=== PATIENT | female | born 1985 | race Caucasian/White ===

== ENCOUNTER → 2016-04-23 | Outpatient (CLI) | payer BC, MEDICAID ==
[2016-04-23 14:06] LABS: BASO % 0.5 % (0.0-1.0); EOS # 0.2 K/mm3 (0.0-0.50); LARGE UNSTAINED CELL # 0.2 K/mm3 (0.0-0.4); LARGE UNSTAINED CELL % 2.1 % (0.0-4.0); LYMPH # 2.4 K/mm3 (1.5-6.5); LYMPH % 33.8 % (24.0-44.0); MEAN CORPUSCULAR HEMOGLOBIN 28.9 pg (27.0-33.0); MEAN CORPUSCULAR HGB CONC 32.6 g/dl (32.0-36.5); MEAN CORPUSCULAR VOLUME 88.5 fl (80.0-96.0); MONO # 0.3 K/mm3 (0.0-0.8); MONO % 4.6 % (0.0-5.0); NEUTROPHILS # 3.9 K/mm3 (1.8-7.7); PLATELET COUNT, AUTOMATED 191 k/mm3 (150-450); RED CELL DISTRIBUTION WIDTH 12.4 % (11.5-14.5)
[2016-04-23 14:37] LABS: ALBUMIN 3.6 GM/DL (3.2-5.2); ALBUMIN/GLOBULIN RATIO 1.13 (1.00-1.93); ALKALINE PHOSPHATASE 64 U/L (45-117); ALT/SGPT 26 U/L (12-78); ANION GAP 8 MEQ/L (8-16); AST/SGOT 13 U/L (15-37); BILIRUBIN,TOTAL 0.4 MG/DL (0.2-1.0); BLOOD UREA NITROGEN 12 MG/DL (7-18); CALCIUM LEVEL 8.7 MG/DL (8.5-10.1); CARBON DIOXIDE LEVEL 28 MEQ/L (21-32); CHLORIDE LEVEL 106 MEQ/L (98-107); CREATININE FOR GFR 0.82 MG/DL (0.55-1.02); FERRITIN 114 NG/ML (8-252); GLOMERULAR FILTRATION RATE > 60.0 (>60); GLUCOSE, FASTING 94 MG/DL (70-105); PERCENT SATURATION 21.2 % (13.2-37.4); PHOSPHORUS LEVEL 4.1 MG/DL (2.5-4.9); POTASSIUM SERUM 4.1 MEQ/L (3.5-5.1); SODIUM LEVEL 142 MEQ/L (136-145); TOTAL IRON BINDING CAPACITY 293 UG/DL (250-450); TOTAL PROTEIN 6.8 GM/DL (6.4-8.2)
[2016-04-23 14:42] LABS: VITAMIN B12 LEVEL 360 PG/ML (247-911)
[2016-04-24 13:37] LABS: PRETREATED FOLATE FOR RBCFOL 7.9 NG/ML
== END ==
LOC: M LAB 13:16
PROVIDERS: ATTEND Surgery
DX: K91.2 Postsurgical malabsorption, not elsewhere classified (principal); Z98.84 Bariatric surgery status

== ENCOUNTER → 2016-10-23 | Outpatient (CLI) | payer BC, MEDICAID ==
[2016-10-23 12:07] LABS: BASO % 0.6 % (0.0-1.0); EOS # 0.2 K/mm3 (0.0-0.50); EOS % 3.9 % (0.0-3.0); LARGE UNSTAINED CELL # 0.2 K/mm3 (0.0-0.4); LARGE UNSTAINED CELL % 3.4 % (0.0-4.0); LYMPH # 2.4 K/mm3 (1.5-4.5); MEAN CORPUSCULAR HEMOGLOBIN 29.9 pg (27.0-33.0); MEAN CORPUSCULAR VOLUME 90.8 fl (80.0-96.0); MONO # 0.3 K/mm3 (0.0-0.8); MONO % 5.6 % (0.0-5.0); NEUTROPHILS # 2.9 K/mm3 (1.8-7.7); NEUTROPHILS % 47.6 % (36.0-66.0); PLATELET COUNT, AUTOMATED 239 k/mm3 (150-450); RED CELL DISTRIBUTION WIDTH 12.5 % (11.5-14.5)
[2016-10-23 13:16] LABS: ALBUMIN 3.6 GM/DL (3.2-5.2); ALBUMIN/GLOBULIN RATIO 1.13 (1.00-1.93); ALKALINE PHOSPHATASE 64 U/L (45-117); ALT/SGPT 26 U/L (12-78); ANION GAP 7 MEQ/L (8-16); AST/SGOT 10 U/L (15-37); BILIRUBIN,TOTAL 0.3 MG/DL (0.2-1.0); BLOOD UREA NITROGEN 17 MG/DL (7-18); CALCIUM LEVEL 8.6 MG/DL (8.5-10.1); CARBON DIOXIDE LEVEL 30 MEQ/L (21-32); CHLORIDE LEVEL 106 MEQ/L (98-107); CREATININE FOR GFR 0.78 MG/DL (0.55-1.02); FERRITIN 144 NG/ML (8-252); GLOMERULAR FILTRATION RATE > 60.0 (>60); GLUCOSE, FASTING 85 MG/DL (70-105); MAGNESIUM LEVEL 2.1 MG/DL (1.8-2.4); PERCENT SATURATION 32.2 % (13.2-45.0); PHOSPHORUS LEVEL 3.3 MG/DL (2.5-4.9); POTASSIUM SERUM 4.4 MEQ/L (3.5-5.1); SODIUM LEVEL 143 MEQ/L (136-145); TOTAL IRON BINDING CAPACITY 289 UG/DL (250-450); TOTAL PROTEIN 6.8 GM/DL (6.4-8.2)
[2016-10-23 14:07] LABS: VITAMIN B12 LEVEL 356 PG/ML (247-911)
[2016-10-23 15:28] LABS: PRETREATED FOLATE FOR RBCFOL 14.9 NG/ML
== END ==
LOC: M LAB 11:29
PROVIDERS: ATTEND Surgery
DX: K91.2 Postsurgical malabsorption, not elsewhere classified (principal); E53.8 Deficiency of other specified B group vitamins; E55.9 Vitamin D deficiency, unspecified; Z98.84 Bariatric surgery status

== ENCOUNTER → 2016-12-18 | Outpatient (REF) | payer BC, MEDICAID, OTHER | LOC: M LAB REF 08:03 | PROVIDERS: ATTEND Physician Assistant | DX: N39.0 Urinary tract infection, site not specified (principal) ==

== ENCOUNTER → 2017-03-09 | Outpatient (CLI) | payer BC, MEDICAID ==
[2017-03-09 10:44] LABS: ESTIMATED AVERAGE GLUCOSE 105 MG/DL (60-110); HEMOGLOBIN A1c 5.3 %
[2017-03-09 11:00] LABS: ALBUMIN 3.7 GM/DL (3.2-5.2); ALBUMIN/GLOBULIN RATIO 1.16 (1.00-1.93); ALKALINE PHOSPHATASE 64 U/L (45-117); ALT/SGPT 24 U/L (12-78); ANION GAP 5 MEQ/L (8-16); AST/SGOT 12 U/L (7-37); BILIRUBIN,TOTAL 0.4 MG/DL (0.2-1.0); BLOOD UREA NITROGEN 13 MG/DL (7-18); CALCIUM LEVEL 8.4 MG/DL (8.5-10.1); CARBON DIOXIDE LEVEL 32 MEQ/L (21-32); CHLORIDE LEVEL 105 MEQ/L (98-107); CHOLESTEROL LEVEL 191 MG/DL (<200); CHOLESTEROL RISK RATIO 3.293 (<5); CREATININE FOR GFR 0.81 MG/DL (0.55-1.30); FREE T4 0.93 NG/DL (0.76-1.46); GLOMERULAR FILTRATION RATE > 60.0 (>60); GLUCOSE, FASTING 88 MG/DL (70-100); HDL CHOLESTEROL 58 MG/DL (>40); LDL CHOLESTEROL 114.8 MG/DL (<100); NON-HDL-C 133 MG/DL; POTASSIUM SERUM 4.4 MEQ/L (3.5-5.1); SODIUM LEVEL 142 MEQ/L (136-145); TOTAL PROTEIN 6.9 GM/DL (6.4-8.2); TRIGLYCERIDES LEVEL 91 MG/DL (<150)
[2017-03-09 12:08] LABS: CHLAMYDIA DNA AMPLIFICATION NEGATIVE (NEGATIVE); GC DNA AMPLIFICATION NEGATIVE (NEGATIVE)
[2017-03-10 11:41] LABS: HIV 1&2 SCREEN CENTAUR NEGATIVE (NEGATIVE)
== END ==
LOC: M LAB 09:51
DX: M25.511 Pain in right shoulder (principal); Z13.9 Encounter for screening, unspecified; Z68.35 Body mass index [BMI] 35.0-35.9, adult; R20.0 Anesthesia of skin
CPT/HCPCS: 73030

== ENCOUNTER 2017-04-05 08:36 | Outpatient (RCR) | payer BC, MEDICAID | END 2017-04-07 | LOC: M PT 08:36 | DX: Z51.89 Encounter for other specified aftercare (principal); M25.511 Pain in right shoulder | CPT/HCPCS: 97110 ==

== ENCOUNTER 2017-04-08 08:32 | Outpatient (RCR) | payer BC, MEDICAID | END 2017-05-08 | LOC: M PT 04-12 08:43 | DX: Z51.89 Encounter for other specified aftercare (principal); M25.511 Pain in right shoulder ==

== ENCOUNTER 2017-05-13 08:40 | Outpatient (RCR) | payer BC | END 2017-06-07 | LOC: M PT 08:40 | DX: Z51.89 Encounter for other specified aftercare (principal); M25.511 Pain in right shoulder | CPT/HCPCS: 97010 ==

== ENCOUNTER → 2017-06-22 | Outpatient (REF) | payer BC ==
[2017-06-24 14:14] LABS: HPV HYBRID CAPTURE II Negative (Negative)
== END ==
LOC: M SFHCWAGY 09:49
DX: Z12.4 Encounter for screening for malignant neoplasm of cervix (principal)
CPT/HCPCS: G0123

== ENCOUNTER → 2017-08-04 | Outpatient (REF) | payer BC ==
[2017-08-04 18:59] LABS: FREE T4 0.99 NG/DL (0.76-1.46)
== END ==
LOC: M LAB REF 17:43
DX: E02 Subclinical iodine-deficiency hypothyroidism (principal)

== ENCOUNTER → 2017-09-16 | Outpatient (REF) | payer BC ==
[2017-09-16 17:57] LABS: TESTOSTERONE 18 NG/DL (14-76)
[2017-09-16 17:57] LABS: PROLACTIN 68.5 NG/ML
[2017-09-16 17:58] LABS: FOLLICLE STIMULATING HORMONE 5.7 mIU/mL; LUTEINIZING HORMONE 6.8 mIU/mL
[2017-09-17 10:37] LABS: THYROID PEROXIDASE ANTIBODY > 1300.0 U/ML (<60.0)
== END ==
LOC: M LAB REF 17:14
DX: E28.2 Polycystic ovarian syndrome (principal); E06.3 Autoimmune thyroiditis
CPT/HCPCS: 83001

== ENCOUNTER → 2017-10-28 | Outpatient (REF) | payer BC ==
[2017-10-28 19:11] LABS: PROLACTIN 6.2 NG/ML
== END ==
LOC: M LAB REF 18:12
DX: E02 Subclinical iodine-deficiency hypothyroidism (principal); E28.2 Polycystic ovarian syndrome
CPT/HCPCS: 84146

== ENCOUNTER → 2018-02-23 | Outpatient (CLI) | payer BC ==
[2018-02-23 16:41] LABS: BASO # 0.1 10^3/uL (0.0-0.2); BASO % 0.7 % (0.0-1.0); EOS # 0.3 10^3/uL (0.0-0.50); EOS % 3.8 % (0.0-3.0); HEMATOCRIT 40.2 % (36.0-47.0); HEMOGLOBIN 13.2 g/dl (12.0-15.5); LYMPH # 2.8 10^3/uL (1.5-4.5); LYMPH % 40.7 % (24.0-44.0); MEAN CORPUSCULAR HEMOGLOBIN 28.7 pg (27.0-33.0); MEAN CORPUSCULAR HGB CONC 32.8 g/dl (32.0-36.5); MEAN CORPUSCULAR VOLUME 87.4 fl (80.0-96.0); MONO # 0.6 10^3/uL (0.0-0.8); MONO % 8.5 % (0.0-5.0); NEUTROPHILS # 3.2 10^3/uL (1.8-7.7); PLATELET COUNT, AUTOMATED 251 10^3/uL (150-450); WHITE BLOOD COUNT 6.9 10^3/uL (4.0-10.0)
[2018-02-23 17:06] LABS: ALBUMIN 3.9 GM/DL (3.2-5.2); ALT/SGPT 27 U/L (12-78); BILIRUBIN,TOTAL 0.3 MG/DL (0.2-1.0); BLOOD UREA NITROGEN 12 MG/DL (7-18); CALCIUM LEVEL 8.4 MG/DL (8.5-10.1); CARBON DIOXIDE LEVEL 29 MEQ/L (21-32); CHLORIDE LEVEL 105 MEQ/L (98-107); CHOLESTEROL LEVEL 207 MG/DL (<200); CHOLESTEROL RISK RATIO 3.696 (<5); CREATININE FOR GFR 0.75 MG/DL (0.55-1.30); GLOMERULAR FILTRATION RATE > 60.0 (>60); GLUCOSE, FASTING 77 MG/DL (70-100); HDL CHOLESTEROL 56 MG/DL (>40); LDL CHOLESTEROL 128 MG/DL (<100); NON-HDL-C 151 MG/DL; POTASSIUM SERUM 4.3 MEQ/L (3.5-5.1); SODIUM LEVEL 140 MEQ/L (136-145); TRIGLYCERIDES LEVEL 114 MG/DL (<150)
[2018-02-23 17:07] LABS: TOTAL 25(OH) VITAMIN D 51.1 NG/ML (30.0-100.0)
[2018-02-23 17:08] LABS: FOLATE 11.6 NG/ML; VITAMIN B12 LEVEL 737 PG/ML
== END ==
LOC: M LAB 15:31
PROVIDERS: ATTEND Nurse Practitioner Family
DX: E66.09 Other obesity due to excess calories (principal); Z13.9 Encounter for screening, unspecified; E02 Subclinical iodine-deficiency hypothyroidism; Z98.84 Bariatric surgery status

== ENCOUNTER → 2018-06-28 | Outpatient (REF) | payer BC ==
[2018-06-28 19:59] LABS: THYROID STIMULATING HORMONE 2.43 uIU/ML (0.358-3.740); TOTAL 25(OH) VITAMIN D 39.5 NG/ML (30.0-100.0)
== END ==
LOC: M LAB REF 19:00
PROVIDERS: ATTEND Nurse Practitioner Adult Health
DX: Z98.84 Bariatric surgery status (principal)

== ENCOUNTER → 2018-10-17 | Outpatient (REF) | payer BC ==
[2018-10-17 19:07] LABS: ALBUMIN 3.8 GM/DL (3.2-5.2); ALT/SGPT 21 U/L (12-78); BILIRUBIN,TOTAL 0.3 MG/DL (0.2-1.0); BLOOD UREA NITROGEN 11 MG/DL (7-18); CALCIUM LEVEL 9.1 MG/DL (8.5-10.1); CARBON DIOXIDE LEVEL 29 MEQ/L (21-32); CHLORIDE LEVEL 105 MEQ/L (98-107); GLOMERULAR FILTRATION RATE > 60.0 (>60); GLUCOSE, FASTING 66 MG/DL (70-100); IRON (FE) 74 UG/DL (50-170); POTASSIUM SERUM 4.1 MEQ/L (3.5-5.1); SODIUM LEVEL 144 MEQ/L (136-145); TOTAL PROTEIN 6.7 GM/DL (6.4-8.2)
[2018-10-17 19:10] LABS: VITAMIN B12 LEVEL 583 PG/ML (247-911)
== END ==
LOC: M LAB REF 18:18
PROVIDERS: ATTEND Nurse Practitioner Adult Health
DX: E02 Subclinical iodine-deficiency hypothyroidism (principal)

== ENCOUNTER 2019-01-17 17:11 | Emergency (ER) | payer BC ==
[~2019-01-17] VITALS: Ht 160 cm; Wt 97.0 kg
[2019-01-17] MEDS ORDERED: prenatal vitamin (17:18)
[2019-01-17] MEDS ORDERED: LEVO25TA5 (17:18)
[2019-01-17] MEDS ORDERED: BUPR300T34 (17:18)
[2019-01-17 19:29] LABS: BASO # 0.1 10^3/uL (0.0-0.2); BASO % 0.9 % (0.0-1.0); EOS # 0.3 10^3/uL (0.0-0.5); EOS % 3.7 % (0.0-3.0); HEMATOCRIT 41.3 % (36.0-47.0); HEMOGLOBIN 13.3 g/dl (12.0-15.5); LYMPH # 2.1 10^3/uL (1.5-5.0); MEAN CORPUSCULAR HEMOGLOBIN 28.9 pg (27.0-33.0); MEAN CORPUSCULAR HGB CONC 32.2 g/dl (32.0-36.5); MEAN CORPUSCULAR VOLUME 89.6 fl (80.0-96.0); MONO # 0.6 10^3/uL (0.0-0.8); MONO % 9.1 % (0.0-5.0); NEUTROPHILS # 3.7 10^3/uL (1.5-8.5); NEUTROPHILS % 55.2 % (36.0-66.0); PLATELET COUNT, AUTOMATED 240 10^3/uL (150-450); RED BLOOD COUNT 4.61 10^6/uL (4.00-5.40); WHITE BLOOD COUNT 6.7 10^3/uL (4.0-10.0)
[2019-01-17 20:16] LABS: BLOOD UREA NITROGEN 9 MG/DL (7-18); CALCIUM LEVEL 8.4 MG/DL (8.5-10.1); CARBON DIOXIDE LEVEL 28 MEQ/L (21-32); CHLORIDE LEVEL 106 MEQ/L (98-107); CREATININE FOR GFR 0.79 MG/DL (0.55-1.30); GLOMERULAR FILTRATION RATE > 60.0 (>60); GLUCOSE, FASTING 84 MG/DL (70-100); HCG, SERUM QUANTITATIVE 15970 MIU/ML; SODIUM LEVEL 139 MEQ/L (136-145)
--- NOTE | 2019-01-17 22:17 | REPVR ---
PROCEDURE INFORMATION: Exam: US First Trimester, Transabdominal Exam date and time: 01/17/2019 10:00 PM Age: 33 years old Clinical history: Lmp or gestational age (in weeks): 6; Antepartum complications; Bleeding; ; Additional info: Vaginal bleeding and bilateral pelvic pain TECHNIQUE: Imaging protocol: Real-time transabdominal obstetrical ultrasound of the maternal pelvis and a first trimester , less than 14 weeks 0 days, with image documentation. COMPARISON: US PELVIC NON-OB COMPLETE 08/12/2014 10:48 AM FINDINGS: GESTATION: Gestation: Single intrauterine gestational sac with mean diameter of 1.9 cm. Heart rate: 102 beats per minute. Placenta: Large subchorionic hemorrhage posterior to the sac measuring 8.8 x 2.6 x 6.8 cm. BIOMETRY: Estimated gestational age: pole with crown-rump length of 4.6 mm, corresponding to an estimated gestational age of 6 weeks 1 day. MATERNAL: Uterus: The uterus measures 11.3 x 6.9 x 7.8 cm. Cervix: Unremarkable. Right adnexa: The right ovary measures 4.8 x 2.7 cm and contains a 2.7 cm complex corpus luteum. Left adnexa: The left ovary measures 3.1 x 1.5 cm and appears unremarkable. Intraperitoneal: No free fluid is demonstrated. IMPRESSION: 1. Single viable intrauterine gestation with estimated gestational age of 6 weeks 1 day. heart rate measures 102 beats per minute, and followup is recommended within 4-7 days to document continued viability. 2. Large subchorionic hemorrhage. Recommend close followup. 3. 2.7 cm right ovarian corpus luteum. Electronically signed by: Tom Juarez On 01/17/2019 22:17:35 PM
[2019-01-17 22:35] VITALS: BP 115/72
--- NOTE | 2019-01-18 12:26 | ED PDOC ---
Post-Departure Follow-Up dr nixon faxed formal report oe 1st trimester us for fu Fidelina Sherwood MD Jan 18, 2019 12:26
== END 2019-01-17 23:51 | disposition home or self-care (01) ==
LOC: M ED 17:11
DX: O20.8 Other hemorrhage in early pregnancy (principal); Z3A.00 Weeks of gestation of pregnancy not specified; Z91.040 Latex allergy status; Z79.899 Other long term (current) drug therapy; O99.841 Bariatric surgery status complicating pregnancy, first trimester

== ENCOUNTER → 2019-01-25 | Outpatient (REF) | payer BC ==
[~2019-01-25] MED LIST: BUPR300T34; LEVO25TA5; prenatal vitamin
[2019-01-25 17:23] LABS: HEMATOCRIT 39.7 % (36.0-47.0); HEMOGLOBIN 12.9 g/dl (12.0-15.5); MEAN CORPUSCULAR HEMOGLOBIN 28.9 pg (27.0-33.0); MEAN CORPUSCULAR HGB CONC 32.5 g/dl (32.0-36.5); PLATELET COUNT, AUTOMATED 248 10^3/uL (150-450); RED BLOOD COUNT 4.46 10^6/uL (4.00-5.40); WHITE BLOOD COUNT 8.2 10^3/uL (4.0-10.0)
[2019-01-25 18:12] LABS: FREE T3 2.3 PG/ML (2.2-4.0); FREE T4 0.92 NG/DL (0.76-1.46); HCG, SERUM QUANTITATIVE 19163 MIU/ML; RUBELLA IgG QUALITATIVE IMMUNE (IMMUNE)
[2019-01-25 18:34] LABS: HIV 1&2 SCREEN CENTAUR NEGATIVE (NEGATIVE)
[2019-01-27 11:41] LABS: HEPATITIS C VIRUS ABY INDEX 0.2 INDEX (<0.8)
== END ==
LOC: M LAB REF 16:44
PROVIDERS: ATTEND Obstetrics & Gynecology
DX: O36.80X0 Pregnancy with inconclusive fetal viability, not applicable or unspecified (principal); Z3A.00 Weeks of gestation of pregnancy not specified

== ENCOUNTER 2019-02-01 19:27 | Emergency (ER) | payer BC ==
[~2019-02-01] VITALS: Ht 160 cm; Wt 97.9 kg
[2019-02-01 19:28] VITALS: BP 134/78
[2019-02-01 20:17] LABS: BASO # 0.1 10^3/uL (0.0-0.2); BASO % 0.9 % (0.0-1.0); EOS # 0.3 10^3/uL (0.0-0.5); EOS % 4.1 % (0.0-3.0); HEMATOCRIT 38.9 % (36.0-47.0); HEMOGLOBIN 12.9 g/dl (12.0-15.5); LYMPH # 2.1 10^3/uL (1.5-5.0); LYMPH % 31.2 % (24.0-44.0); MEAN CORPUSCULAR HEMOGLOBIN 29.5 pg (27.0-33.0); MEAN CORPUSCULAR HGB CONC 33.2 g/dl (32.0-36.5); MONO # 0.6 10^3/uL (0.0-0.8); MONO % 9.5 % (0.0-5.0); NEUTROPHILS # 3.6 10^3/uL (1.5-8.5); PLATELET COUNT, AUTOMATED 252 10^3/uL (150-450); RED BLOOD COUNT 4.37 10^6/uL (4.00-5.40); WHITE BLOOD COUNT 6.7 10^3/uL (4.0-10.0)
[2019-02-01 20:59] LABS: BLOOD UREA NITROGEN 12 MG/DL (7-18); CALCIUM LEVEL 8.5 MG/DL (8.5-10.1); CARBON DIOXIDE LEVEL 25 MEQ/L (21-32); CHLORIDE LEVEL 108 MEQ/L (98-107); CREATININE FOR GFR 0.81 MG/DL (0.55-1.30); GLOMERULAR FILTRATION RATE > 60.0 (>60); GLUCOSE, FASTING 95 MG/DL (70-100); HCG, SERUM QUANTITATIVE 17241 MIU/ML; POTASSIUM SERUM 4.1 MEQ/L (3.5-5.1); SODIUM LEVEL 141 MEQ/L (136-145)
--- NOTE | 2019-02-01 22:46 | REPVR ---
PROCEDURE INFORMATION: Exam: US , Transvaginal Exam date and time: 02/01/2019 9:21 PM Age: 33 years old Clinical indication: Lmp or gestational age (in weeks): 8; Antepartum complications; Bleeding; ; Additional info: Vag bleeding, recent hemorrhage, 8wks preg TECHNIQUE: Imaging protocol: Real-time transvaginal obstetrical ultrasound of the maternal pelvis and a first trimester with image documentation. Transvaginal imaging was used for better evaluation of the fetus and adnexa. COMPARISON: US OB 01/17/2019 9:49 PM FINDINGS: GESTATION: Gestation: Perigestational collection superiorly measuring 4.4 x 3.3 x 4.7 cm which may reflect hemorrhage. Gestational sac within the uterus with a pole. No heartbeat is identified at this time. BIOMETRY: Estimated gestational age: [place] rump length is 3 mm suggesting an age of 6 weeks 0 days. Mean sac size is 1.5 cm suggesting an age of 6 weeks 2 days. Composite age is 6 weeks 1 day. The EDC is 09/26/2019. MATERNAL: Uterus: The uterus measures 11.3 cm in its cephalocaudad dimension and 7.4 x 7.3 cm in its AP and lateral dimensions. Right adnexa: The right ovary measures 3.0 x 3.1 x 3.0 cm and demonstrates a thick walled cyst consistent with a corpus luteum cyst measuring 24 x 26 x 24 mm. There is right ovarian blood flow. Left adnexa: The left ovary measures 2.2 x 2.8 x 1.5 cm and demonstrates arterial and venous blood flow. IMPRESSION: 1. Complex collection cephalad to the gestational sac which may reflect subchorionic hemorrhage measuring 4.4 x 3.3 x 4.7 cm. 2. Intrauterine gestational sac with pole with estimated age of 6 weeks 1 day. No heartbeat is identified at this time. Followup in 1-2 weeks may be of benefit for further evaluation. Electronically signed by: Fortunato Ocasio On 02/01/2019 22:45:47 PM
== END 2019-02-01 23:15 | disposition home or self-care (01) ==
LOC: M ED 19:27
DX: O02.1 Missed abortion (principal); O26.851 Spotting complicating pregnancy, first trimester; Z3A.01 Less than 8 weeks gestation of pregnancy; Z88.6 Allergy status to analgesic agent; Z91.040 Latex allergy status; Z79.899 Other long term (current) drug therapy

== ENCOUNTER → 2019-02-16 | Outpatient (REF) | payer BC | LOC: M LAB REF 12:48 | PROVIDERS: ATTEND Obstetrics & Gynecology | DX: O02.1 Missed abortion (principal) ==

== ENCOUNTER → 2019-03-03 | Outpatient (CLI) | payer BC ==
[~2019-03-03] MED LIST changes: -BUPR300T34; +BUPR300T92
== END ==
LOC: M LAB 10:29
PROVIDERS: ATTEND Obstetrics & Gynecology
DX: O02.1 Missed abortion (principal)

== ENCOUNTER → 2019-03-09 | Outpatient (CLI) | payer BC | LOC: M LAB 10:05 | PROVIDERS: ATTEND Obstetrics & Gynecology | DX: O02.1 Missed abortion (principal) ==

== ENCOUNTER → 2019-06-26 | Outpatient (CLI) | payer BC ==
[2019-06-26 14:48] LABS: FREE T4 1.07 NG/DL (0.76-1.46); THYROID STIMULATING HORMONE 2.34 uIU/ML (0.358-3.740)
== END ==
LOC: M LAB 12:22
PROVIDERS: ATTEND Nurse Practitioner Adult Health
DX: E02 Subclinical iodine-deficiency hypothyroidism (principal)

== ENCOUNTER → 2019-06-28 | Outpatient (REF) | payer BC ==
[2019-06-28 13:13] LABS: HEMATOCRIT 39.8 % (36.0-47.0); HEMOGLOBIN 13.2 g/dl (12.0-15.5); MEAN CORPUSCULAR HEMOGLOBIN 29.4 pg (27.0-33.0); MEAN CORPUSCULAR HGB CONC 33.2 g/dl (32.0-36.5); MEAN CORPUSCULAR VOLUME 88.6 fl (80.0-96.0); PLATELET COUNT, AUTOMATED 248 10^3/uL (150-450); RED BLOOD COUNT 4.49 10^6/uL (4.00-5.40); WHITE BLOOD COUNT 9.7 10^3/uL (4.0-10.0)
[2019-06-28 15:39] LABS: HCG, SERUM QUANTITATIVE 33407 MIU/ML; HEPATITIS B SURFACE ANTIGEN NEGATIVE (NEGATIVE); HIV 1&2 SCREEN CENTAUR NEGATIVE (NEGATIVE)
== END ==
LOC: M LAB REF 12:30
PROVIDERS: ATTEND Obstetrics & Gynecology
DX: O36.80X0 Pregnancy with inconclusive fetal viability, not applicable or unspecified (principal)

== ENCOUNTER → 2019-10-30 | Outpatient (REF) | payer BC ==
[2019-10-30 13:13] LABS: BASO % 0.4 % (0.0-1.0); EOS # 0.1 10^3/uL (0.0-0.5); EOS % 1.2 % (0.0-3.0); HEMATOCRIT 35.9 % (36.0-47.0); HEMOGLOBIN 11.8 g/dl (12.0-15.5); LYMPH # 2.4 10^3/uL (1.5-5.0); LYMPH % 26.3 % (24.0-44.0); MEAN CORPUSCULAR HEMOGLOBIN 29.6 pg (27.0-33.0); MEAN CORPUSCULAR HGB CONC 32.9 g/dl (32.0-36.5); MONO # 0.5 10^3/uL (0.0-0.8); NEUTROPHILS # 5.9 10^3/uL (1.5-8.5); NEUTROPHILS % 65.7 % (36.0-66.0); PLATELET COUNT, AUTOMATED 228 10^3/uL (150-450); RED BLOOD COUNT 3.99 10^6/uL (4.00-5.40)
[2019-10-30 13:58] LABS: ALBUMIN 2.9 GM/DL (3.2-5.2); ALT/SGPT 20 U/L (12-78); BILIRUBIN,TOTAL 0.3 MG/DL (0.2-1.0); BLOOD UREA NITROGEN 8 MG/DL (7-18); CALCIUM LEVEL 8.3 MG/DL (8.5-10.1); CARBON DIOXIDE LEVEL 23 MEQ/L (21-32); CHLORIDE LEVEL 105 MEQ/L (98-107); CREATININE FOR GFR 0.66 MG/DL (0.55-1.30); FREE T4 0.97 NG/DL (0.76-1.46); GLOMERULAR FILTRATION RATE > 60.0 (>60); GLUCOSE, FASTING 131 MG/DL (70-100); POTASSIUM SERUM 3.6 MEQ/L (3.5-5.1); SODIUM LEVEL 137 MEQ/L (136-145); TOTAL PROTEIN 6.4 GM/DL (6.4-8.2); VITAMIN B12 LEVEL 432 PG/ML (247-911)
== END ==
LOC: M LAB REF 12:28
PROVIDERS: ATTEND Family Medicine Addiction Medicine
DX: E02 Subclinical iodine-deficiency hypothyroidism (principal); Z98.84 Bariatric surgery status

== ENCOUNTER → 2019-11-15 | Outpatient (CLI) | payer BC ==
[2019-11-15 10:25] LABS: HEMATOCRIT 35.6 % (36.0-47.0); HEMOGLOBIN 11.6 g/dl (12.0-15.5); MEAN CORPUSCULAR HEMOGLOBIN 28.8 pg (27.0-33.0); MEAN CORPUSCULAR HGB CONC 32.6 g/dl (32.0-36.5); MEAN CORPUSCULAR VOLUME 88.3 fl (80.0-96.0); PLATELET COUNT, AUTOMATED 216 10^3/uL (150-450); RED BLOOD COUNT 4.03 10^6/uL (4.00-5.40); WHITE BLOOD COUNT 6.3 10^3/uL (4.0-10.0)
== END ==
LOC: M LAB 08:25
PROVIDERS: ATTEND Obstetrics & Gynecology
DX: Z34.82 Encounter for supervision of other normal pregnancy, second trimester (principal); Z3A.00 Weeks of gestation of pregnancy not specified

== ENCOUNTER → 2019-11-21 | Outpatient (CLI) | payer BC | LOC: M LAB 07:55 | PROVIDERS: ATTEND Obstetrics & Gynecology | DX: R73.02 Impaired glucose tolerance (oral) (principal) ==

== ENCOUNTER → 2020-01-23 | Outpatient (REF) | payer BC | LOC: M LAB REF 12:22 | PROVIDERS: ATTEND Obstetrics & Gynecology | DX: Z34.83 Encounter for supervision of other normal pregnancy, third trimester (principal); Z3A.00 Weeks of gestation of pregnancy not specified ==

== ENCOUNTER → 2020-02-08 | Outpatient (CLI) | payer BC ==
[~2020-02-08] MED LIST changes: +CYAN500T14 PO; +D31000TA2 PO; +FOLI1TAB11 PO; +PRENTAB53 PO; +THERTAB52 PO; +VITA250T26 PO
== END ==
LOC: M LABSMTC 13:03
PROVIDERS: ATTEND Anesthesiology
DX: Z01.812 Encounter for preprocedural laboratory examination (principal); Z20.828 Contact with and (suspected) exposure to other viral communicable diseases

== ENCOUNTER 2020-02-13 04:58 | Inpatient (IN) | payer BC ==
[~2020-02-13] VITALS: Ht 160 cm; Wt 103.0 kg
[2020-02-13] VITALS (10 sets, daily range): BP systolic 65–137; BP diastolic 46–75
[2020-02-13] MEDS ORDERED: LR 1,000 ML IV SCH ×2 (05:16→09:00)
[2020-02-13] MEDS ORDERED: LACTATED RINGER'S 1000 ML IV STA (05:16)
[2020-02-13] MEDS ORDERED: ceFAZolin SOD 2 GM in IV 1 EA IV ONE (05:30)
[2020-02-13] MEDS ORDERED: BICITRA 30ML SOLN UDC PO ONE (05:30)
[2020-02-13 06:02] LABS: HEMATOCRIT 40.2 % (36.0-47.0); HEMOGLOBIN 13.2 g/dl (12.0-15.5); MEAN CORPUSCULAR HEMOGLOBIN 28.3 pg (27.0-33.0); MEAN CORPUSCULAR HGB CONC 32.8 g/dl (32.0-36.5); MEAN CORPUSCULAR VOLUME 86.3 fl (80.0-96.0); PLATELET COUNT, AUTOMATED 190 10^3/uL (150-450); RED BLOOD COUNT 4.66 10^6/uL (4.00-5.40); WHITE BLOOD COUNT 8.1 10^3/uL (4.0-10.0)
[2020-02-13] MEDS ORDERED: [UNRECOGNIZED DRUG - CODE] PO (06:07)
[2020-02-13] MEDS ORDERED: VIT D3 PO (06:07)
[2020-02-13] MEDS ORDERED: ULTR5TAB PO (06:07)
[2020-02-13] MEDS ORDERED: CAL-TAB4 PO (06:07)
[2020-02-13] MEDS ORDERED: OXYTOCIN DRIP 30 UNITS in IV 1 EA IV SCH (07:43)
[2020-02-13] MEDS ORDERED: MEASLES,MUMPS,RUBELLA VACCINE INJ (MMR-II) (90707) SC SCH (07:45)
[2020-02-13] MEDS ORDERED: RHOGAM 300 MCG (1500 IU) INJ (J2790) IM SCH (07:45)
[2020-02-13] MEDS ORDERED: MORPHINE PRES-FREE INJ 10 MG/10 ML VIAL (J2274) As Ordered ONE (07:51)
[2020-02-13] MEDS ORDERED: OXYTOCIN INJ 10 UNITS/ML VIAL (J2590) As Ordered ONE (07:51)
[2020-02-13] MEDS ORDERED: ONDANSETRON 4MG/2ML VIAL As Ordered ONE (07:51)
[2020-02-13] MEDS ORDERED: ePHEDrine SULFATE 25 MG/5 ML(5MG/ML) SYRINGE As Ordered ONE (07:52)
[2020-02-13] MEDS ORDERED: PHENYLephrine 500MCG 5ML (100MCG/ML) SYRINGE As Ordered ONE (07:52)
[2020-02-13 08:10] LABS: CORD GAS ABE V -3.3; CORD GAS O2 SAT V 54.6 %; CORD GAS PCO2 V 45.8 mmHg; CORD GAS PH V 7.319 UNITS; CORD GAS PO2 V 24.7 mmHg; CORD GAS SBC V 20.8 MEQ/L; CORD GAS TCO2 V 24.4 MEQ/L
[2020-02-13 08:11] LABS: CORD GAS ABE A -1.2; CORD GAS HCO3 A 27.3 MEQ/L; CORD GAS O2 SAT A 37.8 %; CORD GAS PCO2 A 62.6 mmHg; CORD GAS PH A 7.257 UNITS; CORD GAS PO2 A 19.2 mmHg; CORD GAS SBC A 22.1 MEQ/L; CORD GAS TCO2 A 29.2 MEQ/L
[2020-02-13] MEDS ORDERED: PERCOCET 5MG/325MG TAB PO PRN (09:00)
[2020-02-13] MEDS: PRENATAL VITAMINS CHEWABLE TABLET PO SCH (09:00)
[2020-02-13] MEDS ORDERED: NALOXONE INJ 0.4MG/1ML VIAL (J2310 PER 1MG) IV PRN ×2 (09:00)
[2020-02-13] MEDS ORDERED: METOCLOPRAMIDE INJ 10MG/2ML VIAL (J2765 PER 1) IV PRN ×2 (09:00)
[2020-02-13] MEDS ORDERED: NALBUPHINE HCL 10 MG/ML AMP (J2300) IV PRN (09:00)
[2020-02-13] MEDS ORDERED: ONDANSETRON 4MG/2ML VIAL IV PRN ×2 (09:00)
[2020-02-13] MEDS: KETOROLAC 30 MG/ML 1ML VIAL IV SCH ×3 (09:00→20:30)
[2020-02-13] MEDS ORDERED: fentaNYL 100 MCG/2 ML INJECTION (J3010) IV PRN (09:00)
--- NOTE | 2020-02-13 09:30 | RO ---
OPERATIVE NOTE DATE OF OPERATION: 02/13/2020 INDICATIONS: Keri is a 34-year-old female with history of two prior sections who is being admitted for elective repeat section and bilateral tubal ligation. PREOPERATIVE DIAGNOSES: 1. Term for elective repeat section. 2. Desires permanent tubal sterilization. POSTOPERATIVE DIAGNOSES: 1. Term for elective repeat section. 2. Desires permanent tubal sterilization. 3. Dense omental adhesion. PROCEDURES: 1. Repeat section. 2. Revision of old scar. 3. Bilateral salpingectomy. 4. Extensive lysis of adhesions. ANESTHESIA: Spinal. SURGEON: Bang Cardona DO SUPERVISOR GRINDING: Dr. Mack COMPLICATIONS: None. ESTIMATED BLOOD LOSS: 500 mL. SPECIMEN TO LAB: Segment of both tubes. PROCEDURE: After obtaining informed consent, the patient was taken to the operating room where spinal anesthetic was found to be adequate. She was draped and prepped in the usual sterile fashion in the supine position. With the help of Dr. Mack elliptical incision was made. This was carried down to the fascia. The fascia was incised in a midline fashion and carried through laterally. The superior aspect of the fascia was then grasped with Tejas clamp, tented off and dissected off the rectus muscles sharply. The inferior aspect was dissected off in a similar fashion. Then rectus muscles were in midline fashion. The peritoneum was identified. The peritoneal cavity was entered bluntly. Superior and inferior dissection of the peritoneum was then done with good visualization of the bladder. At this point the omental adhesions were found. Using Bovie with series of sharp and blunt dissection the omental adhesions were freed up. We then placed a Mobius skin retractor in the abdomen. Small lower uterine window was identified. The lower uterine segment incision was extended laterally. The 's head was then delivered in atraumatic fashion. The nose and mouth bulb suctioned. The cord was doubly clamped and cut and the was handed over to awaiting warmer. Cord blood and cord gas were sent. The placenta was removed manually. The uterus was cleared of all clot and debris and the uterine incision was then repaired in two separate layers of #0 Vicryl suture. We then turned our attention to the fallopian tubes where the fimbriated ends were identified, [place] was placed in the center of the tube and two large Taylor's were used. At this point the entire tube was removed using the Bovie and the mesosalpinx was then closed using 3-0 chromic suture. The opposite side was done in similar fashion. Good hemostasis noted. The pelvis was copiously irrigated with normal saline and suctioned out. Attention was turned to the peritoneum which was closed in a running fashion using 2-0 Vicryl sutures. The fascia was closed with #0 Vicryl into separate segments. All superficial bleeders were coagulated and the skin was reapproximated in a subcuticular fashion using 3-0 Vicryl on a Mack. Steri-Strips were placed. The patient tolerated the procedure well. She was then transferred to recovery room in stable condition. cc: [facility]
[2020-02-13] MEDS ORDERED: OXYTOCIN 30 UNITS IN 0.9% NaCl 500ML IV BAG (J2590) As Ordered ONE (09:38)
[2020-02-13] MEDS: diphenhydrAMINE 50MG/ML VIAL (J1200) IV PRN ×2 (11:03→16:07)
[2020-02-14] MEDS: diphenhydrAMINE 50MG/ML VIAL (J1200) IV PRN (01:00)
[2020-02-14 02:00] VITALS: BP 101/55
[2020-02-14] MEDS: KETOROLAC 30 MG/ML 1ML VIAL IV SCH (03:08)
[2020-02-14 06:00] VITALS: BP 111/55
[2020-02-14 07:10] LABS: HEMATOCRIT 36.4 % (36.0-47.0); HEMOGLOBIN 11.8 g/dl (12.0-15.5); MEAN CORPUSCULAR HGB CONC 32.4 g/dl (32.0-36.5); MEAN CORPUSCULAR VOLUME 89.4 fl (80.0-96.0); PLATELET COUNT, AUTOMATED 173 10^3/uL (150-450); RED BLOOD COUNT 4.07 10^6/uL (4.00-5.40); WHITE BLOOD COUNT 7.9 10^3/uL (4.0-10.0)
[2020-02-14] MEDS: PRENATAL VITAMINS CHEWABLE TABLET PO SCH (09:11)
[2020-02-14] MEDS: DOCUSATE SODIUM 100MG CAPSULE PO SCH ×2 (09:33→21:10)
[2020-02-14 10:00] VITALS: BP 131/79
[2020-02-14] MEDS: IBUPROFEN 800 MG TAB PO SCH ×2 (10:04→19:00)
[2020-02-14 14:00] VITALS: BP 132/80
[2020-02-14] MEDS: PERCOCET 5MG/325MG TAB PO PRN ×2 (16:42→23:07)
[2020-02-14 18:00] VITALS: BP 125/76
[2020-02-14 22:00] VITALS: BP 111/59
[2020-02-14] MEDS ORDERED: BISACODYL 10 MG SUPP PR ONE (23:30)
[2020-02-15 02:00] VITALS: BP 100/55
[2020-02-15] MEDS: IBUPROFEN 800 MG TAB PO SCH ×3 (03:00→18:40)
[2020-02-15 06:00] VITALS: BP 129/73
[2020-02-15] MEDS: PERCOCET 5MG/325MG TAB PO PRN ×4 (06:45→20:53)
[2020-02-15 08:15] VITALS: BP 129/73
[2020-02-15] MEDS: DOCUSATE SODIUM 100MG CAPSULE PO SCH ×2 (09:44→20:52)
[2020-02-15] MEDS: PRENATAL VITAMINS CHEWABLE TABLET PO SCH (09:44)
[2020-02-15 18:00] VITALS: BP 137/75
[2020-02-16] MEDS: PERCOCET 5MG/325MG TAB PO PRN (02:29)
[2020-02-16] MEDS: IBUPROFEN 800 MG TAB PO SCH ×2 (03:00→11:06)
[2020-02-16 06:00] VITALS: BP 124/70
[2020-02-16] MEDS ORDERED: PERCOCET PO (07:12)
--- NOTE | 2020-02-16 07:19 | DS.PDOC ---
Discharge Summary General Date of Admission Feb 13, 2020 at 04:58 Date of Discharge 02/16/2020 Attending Physician: Bang Cardona DO Discharge Summary PROCEDURES PERFORMED DURING STAY: 1. Spinal anesthesia 2. section 3. Tubal ligation. ADMITTING DIAGNOSES: 1. History of section desiring permanent sterilization. DISCHARGE DIAGNOSES: 1. Same as above. COMPLICATIONS/CHIEF COMPLAINT: Previous Section, Treatment Of Ability.... HISTORY OF PRESENT ILLNESS/ Hospital course: This patient is a 34-year-old who presented for scheduled section. She had expressed desire fertility and underwent uncomplicated section with tubal ligation. Estimated blood loss is 500 pounds. She did well postoperatively by postoperative day #3 had met all discharge criteria and was discharged home in stable condition. DISCHARGE MEDICATIONS: Please see below. ALLERGIES: Please see below. PHYSICAL EXAMINATION ON DISCHARGE: VITAL SIGNS: Please see below. GENERAL: Well-appearing ABDOMINAL EXAMINATION: Soft properly tender. Incision was clean dry and intact nonerythematous well approximated with Steri-Strips EXTREMITIES: Negative calf tenderness NEUROLOGICAL EXAMINATION: Grossly intact PSYCHIATRIC EXAMINATION: Appropriate LABORATORY DATA: Please see below. ACTIVITY: As tolerated. DIET: Regular DISCHARGE PLAN: Home DISCHARGE INSTRUCTIONS: 1. Follow-up for incision check in 2 weeks. 2. Remain on pelvic rest for 6 weeks 3. Report severe pain, vaginal bleeding fever or incisional issues DISCHARGE CONDITION: Stable. Vital Signs/I&Os Vital Signs Date Time Temp Pulse Resp B/P (MAP) Pulse Ox O2 Delivery O2 Flow Rate FiO2 02/16/20 03:00 17 02/15/20 20:53 Room Air 02/15/20 18:00 98.0 71 137/75 (95) 98 Discharge Medications Scheduled Ascorbic Acid (Vitamin C) 250 Mg Tablet, Unknown Dose PO DAILY, (Reported) Biotin (Biotin) 5,000 Mcg Tab.rapdis, 2 TAB PO DAILY, (Reported) Calcium Citrate/Vitamin D2 (Manan-Citrate Plus Vitamin D Tab) 1 Each Tablet, 1 TAB PO DAILY, (Reported) Cyanocobalamin (Vitamin B-12) (Vitamin B-12) 500 Mcg Tablet, Unknown Dose PO DAILY, (Reported) Docusate Calcium (Stool Softener) 240 Mg Capsule, 1 CAP PO DAILY for constipation, (Reported) Folic Acid (Folic Acid) 1 Mg Tablet, Unknown Dose PO DAILY, (Reported) Multivitamin,Therapeutic (Thera-Tabs) 1 Each Tablet, 1 TAB PO DAILY, (Reported) Vit,Calc76/Iron/Folic (Prenatabs Rx Tablet) 1 Each Tablet, 1 TAB PO DAILY, (Reported) Scheduled PRN Oxycodone/Acetaminophen (Oxycodone-Acetaminophen 5-325) 1 Each Tablet, 1 TAB PO Q4H PRN for MILD/MODERATE PAIN (PS 1-7) Miscellaneous Medications [Vit D3] , 5,000 INTERUNITS PO, (Reported) Allergies Coded Allergies: latex (Verified Allergy, Intermediate, sesitive, 02/06/20) Kiwi (Verified Adverse Reaction, Intermediate, itchy throat, 02/06/20) NSAIDS (Non-Steroidal Anti-Inflamma (Verified Adverse Reaction, Mild, Gastric sleeve, 02/06/20) GREGG ANTOINE MD. Feb 16, 2020 07:19
[2020-02-16] MEDS: DOCUSATE SODIUM 100MG CAPSULE PO SCH (08:41)
[2020-02-16] MEDS: PRENATAL VITAMINS CHEWABLE TABLET PO SCH (08:41)
== END 2020-02-16 12:53 | disposition home or self-care (01) | DRG 540 ==
LOC: M LDI 04:58 → M OBS 10:41
PROVIDERS: ADMIT Obstetrics & Gynecology; ATTEND Obstetrics & Gynecology
PROC: 0UB70ZZ Excision of Bilateral Fallopian Tubes, Open Approach (ICD-10-PCS; 2020-02-13)
PROC: 10D00Z1 Extraction of Products of Conception, Low, Open Approach (ICD-10-PCS; principal; 2020-02-13 07:30)
DX: O34.211 Maternal care for low transverse scar from previous cesarean delivery (principal); Z3A.39 39 weeks gestation of pregnancy; Z37.0 Single live birth; Z30.2 Encounter for sterilization

== ENCOUNTER → 2020-04-05 | Outpatient (CLI) | payer BC ==
[~2020-04-05] MED LIST changes: +CAL-TAB4 PO; +PERCOCET PO; +ULTR5TAB PO; +VIT D3 PO; +[UNRECOGNIZED DRUG - CODE] PO
[2020-04-05 11:44] LABS: FREE T4 1.04 NG/DL (0.76-1.46); THYROID STIMULATING HORMONE 0.549 uIU/ML (0.358-3.740)
== END ==
LOC: M LAB 10:07
PROVIDERS: ATTEND Nurse Practitioner Adult Health
DX: E03.9 Hypothyroidism, unspecified (principal)

== ENCOUNTER → 2020-04-30 | Outpatient (REF) | payer BC ==
[2020-04-30 12:31] LABS: BASO # 0.1 10^3/uL (0.0-0.2); EOS # 0.3 10^3/uL (0.0-0.5); EOS % 5.4 % (0.0-3.0); HEMATOCRIT 40.2 % (36.0-47.0); HEMOGLOBIN 12.7 g/dl (12.0-15.5); LYMPH # 2.2 10^3/uL (1.5-5.0); LYMPH % 38.5 % (24.0-44.0); MEAN CORPUSCULAR HEMOGLOBIN 28.8 pg (27.0-33.0); MEAN CORPUSCULAR HGB CONC 31.6 g/dl (32.0-36.5); MEAN CORPUSCULAR VOLUME 91.2 fl (80.0-96.0); MONO # 0.7 10^3/uL (0.0-0.8); MONO % 12.1 % (2.0-8.0); NEUTROPHILS # 2.5 10^3/uL (1.5-8.5); NEUTROPHILS % 42.8 % (36.0-66.0); PLATELET COUNT, AUTOMATED 288 10^3/uL (150-450); RED BLOOD COUNT 4.41 10^6/uL (4.00-5.40); WHITE BLOOD COUNT 5.7 10^3/uL (4.0-10.0)
[2020-04-30 12:57] LABS: HEMOGLOBIN A1c 5.1 %
[2020-04-30 13:02] LABS: ALBUMIN 3.5 GM/DL (3.2-5.2); ALT/SGPT 28 U/L (12-78); BILIRUBIN,TOTAL 0.3 MG/DL (0.2-1.0); BLOOD UREA NITROGEN 13 MG/DL (7-18); CALCIUM LEVEL 9.3 MG/DL (8.5-10.1); CARBON DIOXIDE LEVEL 35 MEQ/L (21-32); CHLORIDE LEVEL 103 MEQ/L (98-107); CHOLESTEROL LEVEL 240 MG/DL (<200); CREATININE FOR GFR 0.74 MG/DL (0.55-1.30); GLOMERULAR FILTRATION RATE > 60.0 (>60); GLUCOSE, FASTING 95 MG/DL (70-100); HDL CHOLESTEROL 57 MG/DL (>40); LDL CHOLESTEROL 145 MG/DL (<100); NON-HDL-C 183 MG/DL; POTASSIUM SERUM 4.3 MEQ/L (3.5-5.1); SODIUM LEVEL 140 MEQ/L (136-145); THYROID STIMULATING HORMONE 0.027 uIU/ML (0.358-3.740); TRIGLYCERIDES LEVEL 189 MG/DL (<150)
[2020-04-30 13:03] LABS: TOTAL 25(OH) VITAMIN D 40.5 NG/ML (30.0-100.0)
[2020-04-30 13:04] LABS: FOLATE > 24.0 NG/ML; VITAMIN B12 LEVEL 1383 PG/ML
== END ==
LOC: M LAB REF 11:58
PROVIDERS: ATTEND Pediatrics
DX: Z98.84 Bariatric surgery status (principal); E28.2 Polycystic ovarian syndrome; E06.3 Autoimmune thyroiditis

== ENCOUNTER → 2020-05-30 | Outpatient (CLI) | payer BC ==
--- NOTE | 2020-05-30 12:52 | REP ---
INDICATION: AUTOIMMUNE THYROIDITIS / LAB 1ST COMPARISON: 03/01/2015 TECHNIQUE: [place] scale and color evaluation of the thyroid gland using the linear high frequency transducer. FINDINGS: The thyroid gland is diffusely heterogeneous and relatively symmetric/normal in vascularity. No discrete focal cyst or nodule is identified. Right lobe measures 3.7 x 1.6 x 1.6 cm. Left lobe measures 4.0 x 1.9 x 1.7 cm. Isthmus measures 9 mm. IMPRESSION: Diffusely heterogeneous thyroid gland similar to prior examination <Electronically signed by Minh Ochoa > 05/30/20 [id number]
[2020-05-30 13:41] LABS: FREE T4 1.09 NG/DL (0.76-1.46); THYROID PEROXIDASE ANTIBODY > 1300.0 U/ML (<60.0); THYROID STIMULATING HORMONE 0.034 uIU/ML (0.358-3.740)
== END ==
LOC: M RAD 12:05
PROVIDERS: ATTEND Pediatrics
DX: E06.3 Autoimmune thyroiditis (principal)

== ENCOUNTER → 2020-06-26 | Outpatient (CLI) | payer BC | LOC: M CARPUL 09:15 | PROVIDERS: ATTEND Pediatrics | DX: R00.0 Tachycardia, unspecified (principal); Z86.16 Personal history of COVID-19 ==

== ENCOUNTER → 2021-05-21 | Outpatient (CLI) | payer BC ==
[~2021-05-21] MED LIST changes: -D31000TA2 PO; +VITA100093 PO
[2021-05-21 09:21] LABS: BASO # 0.1 10^3/uL (0.0-0.2); BASO % 0.9 % (0.0-1.0); EOS # 0.1 10^3/uL (0.0-0.5); EOS % 1.5 % (0.0-3.0); HEMATOCRIT 43.1 % (36.0-47.0); HEMOGLOBIN 13.8 g/dl (12.0-15.5); LYMPH # 2.5 10^3/uL (1.5-5.0); LYMPH % 32.3 % (24.0-44.0); MEAN CORPUSCULAR HEMOGLOBIN 28.6 pg (27.0-33.0); MEAN CORPUSCULAR VOLUME 89.4 fl (80.0-96.0); MONO # 0.5 10^3/uL (0.0-0.8); MONO % 6.2 % (2.0-8.0); NEUTROPHILS # 4.6 10^3/uL (1.5-8.5); PLATELET COUNT, AUTOMATED 270 10^3/uL (150-450); RED BLOOD COUNT 4.82 10^6/uL (4.00-5.40); WHITE BLOOD COUNT 7.8 10^3/uL (4.0-10.0)
[2021-05-21 10:36] LABS: ALBUMIN 3.7 GM/DL (3.2-5.2); ALT/SGPT 24 U/L (12-78); BILIRUBIN,TOTAL 0.2 MG/DL (0.2-1.0); BLOOD UREA NITROGEN 12 MG/DL (7-18); CALCIUM LEVEL 9.2 MG/DL (8.5-10.1); CARBON DIOXIDE LEVEL 30 MEQ/L (21-32); CHLORIDE LEVEL 106 MEQ/L (98-107); CORTISOL AM 0.6 UG/DL (4.3-22.4); CREATININE FOR GFR 0.66 MG/DL (0.55-1.30); FREE T4 0.96 NG/DL (0.76-1.46); GLOMERULAR FILTRATION RATE > 60.0 (>60); GLUCOSE, FASTING 67 MG/DL (70-100); POTASSIUM SERUM 4.8 MEQ/L (3.5-5.1); SODIUM LEVEL 139 MEQ/L (136-145); THYROID PEROXIDASE ANTIBODY > 1300.0 U/ML (<60.0); TOTAL PROTEIN 7.1 GM/DL (6.4-8.2)
[2021-05-21 10:37] LABS: TOTAL T3 127.5 NG/DL (60.0-181.0)
== END ==
LOC: M LAB 07:47
PROVIDERS: ATTEND Internal Medicine
DX: E06.3 Autoimmune thyroiditis (principal); R00.2 Palpitations

== ENCOUNTER → 2021-11-17 | Outpatient (REF) | payer BC ==
[2021-11-17 14:29] LABS: APPEARANCE, URINE MANUAL CLEAR (CLEAR); COLOR, URINE MANUAL YELLOW (YELLOW)
[2021-11-17 14:31] LABS: BILIRUBIN, URINE MANUAL NEGATIVE (NEGATIVE); GLUCOSE, URINE (UA) MANUAL NEGATIVE (NEGATIVE); KETONE, URINE MANUAL NEGATIVE (NEGATIVE); NITRITE, URINE MANUAL NEGATIVE (NEGATIVE); PROTEIN, URINE MANUAL NEGATIVE (NEGATIVE); SPECIFIC GRAVITY,URINE MANUAL 1.005 (1.002-1.035)
[2021-11-17 14:32] LABS: BLOOD URINE MANUAL POSITIVE (NEGATIVE); LEUKOCYTE ESTERASE, URINE MAN POSITIVE (NEGATIVE)
[2021-11-17 15:20] LABS: UROBILINOGEN, URINE MANUAL NORMAL (NORMAL)
[2021-11-17 15:22] LABS: BACTERIA, URINE SMALL AMOUNT; HYALINE CAST, URINE NONE SEEN /lpf (0-1); SQUAMOUS EPITHELIAL CELL URINE MOD AMOUNT /hpf (SMALL AMT); WBC, URINE 30-40 /hpf (0-3)
== END ==
LOC: M LAB REF 12:13
PROVIDERS: ATTEND Physician Assistant Medical
DX: N39.0 Urinary tract infection, site not specified (principal)

== ENCOUNTER → 2021-11-25 | Outpatient (REF) | payer BC, MEDICAID ==
[2021-11-25 12:55] LABS: FREE T4 0.83 NG/DL (0.76-1.46); THYROID STIMULATING HORMONE 3.32 uIU/ML (0.358-3.740)
== END ==
LOC: M LAB REF 11:46
PROVIDERS: ATTEND Pediatrics
DX: E06.3 Autoimmune thyroiditis (principal)

== ENCOUNTER → 2022-01-15 | Outpatient (REF) | payer BC, MEDICAID | LOC: M LAB REF 12:29 | PROVIDERS: ATTEND Pediatrics | DX: E06.3 Autoimmune thyroiditis (principal) ==

== ENCOUNTER → 2022-04-08 | Outpatient (REF) | payer BC, MEDICAID | LOC: M LAB REF 16:04 | PROVIDERS: ATTEND Pediatrics | DX: E06.3 Autoimmune thyroiditis (principal) ==

== ENCOUNTER → 2022-08-25 | Outpatient (REF) | payer MEDICAID ==
[2022-08-25 12:42] LABS: IRON (FE) 31 UG/DL (50-170); PERCENT SATURATION 9.2 % (13.2-45.0); TOTAL IRON BINDING CAPACITY 338 UG/DL (250-425)
[2022-08-25 12:44] LABS: ALBUMIN 3.9 G/DL (3.2-5.2); ALKALINE PHOSPHATASE 82 U/L (46-116); ALT/SGPT 31 U/L (7.0-40); AST/SGOT 18 U/L (<34); BILIRUBIN,TOTAL 0.4 MG/DL (0.3-1.2); BLOOD UREA NITROGEN 18 MG/DL (9-23); CALCIUM LEVEL 9.4 MG/DL (8.5-10.1); CARBON DIOXIDE LEVEL 25 MMOL/L (20-31); CHLORIDE LEVEL 103 MMOL/L (98-107); CHOLESTEROL LEVEL 254 MG/DL (<200); CREATININE FOR GFR 0.77 MG/DL (0.55-1.30); EOS # 0.1 10^3/uL (0.0-0.5); GLOMERULAR FILTRATION RATE > 60.0 (>60); GLUCOSE, FASTING 85 MG/DL (60-100); HDL CHOLESTEROL 63.5 MG/DL (>40); HEMOGLOBIN 14.1 g/dl (12.0-15.5); LDL CHOLESTEROL 176.1 MG/DL (<100); LYMPH % 24.3 % (24.0-44.0); MEAN CORPUSCULAR HEMOGLOBIN 28.9 pg (27.0-33.0); MEAN CORPUSCULAR VOLUME 90.2 fl (80.0-96.0); MONO # 0.4 10^3/uL (0.0-0.8); MONO % 10.6 % (2.0-8.0); NEUTROPHILS # 2.5 10^3/uL (1.5-8.5); NEUTROPHILS % 61.6 % (36.0-66.0); NON-HDL-C 190.5 MG/DL; PLATELET COUNT, AUTOMATED 283 10^3/uL (150-450); POTASSIUM SERUM 4.9 MMOL/L (3.5-5.1); RED BLOOD COUNT 4.88 10^6/uL (4.00-5.40); SODIUM LEVEL 136 MMOL/L (136-145); THYROID STIMULATING HORMONE 1.326 uIU/ML (0.55-4.78); TOTAL 25(OH) VITAMIN D 40.1 NG/ML (20.0-100.0); TOTAL PROTEIN 7.3 G/DL (5.7-8.2); TRIGLYCERIDES LEVEL 72 MG/DL (<150); VITAMIN B12 LEVEL 1103 PG/ML (211-911); WHITE BLOOD COUNT 4.1 10^3/uL (4.0-10.0)
[2022-08-25 12:50] LABS: FOLATE > 24.0 NG/ML (>5.4)
== END ==
LOC: M LAB REF 11:48
PROVIDERS: ATTEND Pediatrics
DX: E06.3 Autoimmune thyroiditis (principal); Z98.84 Bariatric surgery status; E78.5 Hyperlipidemia, unspecified; E55.9 Vitamin D deficiency, unspecified; E66.9 Obesity, unspecified

== ENCOUNTER → 2023-01-29 | Outpatient (REF) | payer MEDICAID | LOC: M LAB REF 12:14 | PROVIDERS: ATTEND Pediatrics | DX: E06.3 Autoimmune thyroiditis (principal) ==

== ENCOUNTER → 2023-02-12 | Outpatient (REF) | payer OTHER, MEDICAID ==
[2023-02-12 13:14] LABS: ALBUMIN 3.6 G/DL (3.2-5.2); ALKALINE PHOSPHATASE 75 U/L (46-116); ALT/SGPT 24 U/L (7.0-40); AST/SGOT 15 U/L (<34); BILIRUBIN,TOTAL 0.3 MG/DL (0.3-1.2); BLOOD UREA NITROGEN 18 MG/DL (9-23); CALCIUM LEVEL 8.8 MG/DL (8.5-10.1); CARBON DIOXIDE LEVEL 32 MMOL/L (20-31); CHLORIDE LEVEL 106 MMOL/L (98-107); CHOLESTEROL LEVEL 254 MG/DL (<200); CHOLESTEROL RISK RATIO 3.95 (<5); CREATININE FOR GFR 0.77 MG/DL (0.55-1.30); GLOMERULAR FILTRATION RATE > 60.0 (>60); GLUCOSE, FASTING 78 MG/DL (60-100); HDL CHOLESTEROL 64.3 MG/DL (>40); IRON (FE) 55 UG/DL (50-170); LDL CHOLESTEROL 155.5 MG/DL (<100); NON-HDL-C 189.7 MG/DL; POTASSIUM SERUM 4.2 MMOL/L (3.5-5.1); SODIUM LEVEL 141 MMOL/L (136-145); TOTAL IRON BINDING CAPACITY 323 UG/DL (250-425); TOTAL PROTEIN 6.9 G/DL (5.7-8.2); TRIGLYCERIDES LEVEL 171 MG/DL (<150)
[2023-02-12 13:16] LABS: FERRITIN 36.2 NG/ML (7.3-270.7)
== END ==
LOC: M LAB REF 12:20
PROVIDERS: ATTEND Pediatrics
DX: E61.1 Iron deficiency (principal); E78.5 Hyperlipidemia, unspecified

== ENCOUNTER → 2023-06-22 | Outpatient (REF) | payer OTHER, MEDICAID ==
[~2023-06-22] MED LIST changes: +BUPR-597; -BUPR300T92
[2023-06-22 14:27] LABS: CHOLESTEROL LEVEL 212 MG/DL (<200); CHOLESTEROL RISK RATIO 3.97 (<5); FERRITIN 44.7 NG/ML (7.3-270.7); HDL CHOLESTEROL 53.3 MG/DL (>40); LDL CHOLESTEROL 121.9 MG/DL (<100); NON-HDL-C 158.7 MG/DL; TRIGLYCERIDES LEVEL 184 MG/DL (<150); VITAMIN B12 LEVEL 1208 PG/ML (211-911)
[2023-06-22 14:28] LABS: FOLATE > 24.0 NG/ML (>5.4)
== END ==
LOC: M LAB REF 12:07
PROVIDERS: ATTEND Pediatrics
DX: K91.2 Postsurgical malabsorption, not elsewhere classified (principal); E06.3 Autoimmune thyroiditis; E78.5 Hyperlipidemia, unspecified

== ENCOUNTER → 2023-10-12 | Outpatient (REF) | payer OTHER, MEDICAID | LOC: M LAB REF 16:32 | PROVIDERS: ATTEND Pediatrics | DX: E06.3 Autoimmune thyroiditis (principal) ==

== ENCOUNTER → 2023-12-31 | Outpatient (REF) | payer OTHER, MEDICAID ==
[2023-12-31 13:59] LABS: THYROID STIMULATING HORMONE 0.146 uIU/ML (0.55-4.78)
[2023-12-31 14:01] LABS: FREE T4 1.96 NG/DL (0.89-1.76)
[2023-12-31 14:06] LABS: FREE T3 3.9 PG/ML (2.3-4.2); TOTAL T3 134.8 NG/DL (60.0-181.0)
== END ==
LOC: M LAB REF 12:50
PROVIDERS: ATTEND Pediatrics
DX: E06.3 Autoimmune thyroiditis (principal)

== ENCOUNTER → 2024-03-10 | Outpatient (REF) | payer OTHER, MEDICAID | LOC: M LAB REF 12:27 | PROVIDERS: ATTEND Pediatrics | DX: J02.9 Acute pharyngitis, unspecified (principal) ==

== ENCOUNTER → 2024-03-28 | Outpatient (REF) | payer OTHER, MEDICAID ==
[2024-03-28 14:35] LABS: THYROID STIMULATING HORMONE 1.361 uIU/ML (0.55-4.78)
[2024-03-28 14:36] LABS: FREE T4 1.3 NG/DL (0.89-1.76)
[2024-03-28 15:16] LABS: HEMOGLOBIN A1c 5.3 % (4.0-6.0)
== END ==
LOC: M LAB REF 12:59
PROVIDERS: ATTEND Pediatrics
DX: E06.3 Autoimmune thyroiditis (principal); E66.9 Obesity, unspecified

== ENCOUNTER → 2024-04-25 | Outpatient (CLI) | payer OTHER, MEDICAID | LOC: M RAD 07:47 | PROVIDERS: ATTEND Nurse Practitioner Family | DX: G43.011 Migraine without aura, intractable, with status migrainosus (principal) ==

== ENCOUNTER → 2024-08-15 | Outpatient (CLI) | payer OTHER, MEDICAID ==
[~2024-08-15] MED LIST changes: -BUPR-597; +BUPR-766
[2024-08-17 14:10] LABS: HPV APTIMA Detected (Not Detected)
[2024-08-18 07:34] LABS: DEHYDROEPIANDROSTERONE SULFATE 96.0 mcg/dL (19-237)
[2024-08-22 00:13] LABS: TESTOSTERONE FREE (DIRECT) 1.7 pg/mL (0.1-6.4); TESTOSTERONE TOTAL FOR T&D 27.0 ng/dL (2-45)
[2024-08-23 19:28] LABS: 17 HYDROXY PROGESTERONE 31.0 ng/dL
== END ==
LOC: M PLALAB 14:39
PROVIDERS: ATTEND Advanced Practice Midwife
DX: Z12.4 Encounter for screening for malignant neoplasm of cervix (principal); N92.6 Irregular menstruation, unspecified; R87.612 Low grade squamous intraepithelial lesion on cytologic smear of cervix (LGSIL)
CPT/HCPCS: 36415; 82627; 83498; 84146; 84402; 84403; 87624; G0123

== ENCOUNTER → 2024-09-08 | Outpatient (CLI) | payer OTHER, MEDICAID | LOC: M WHC 10:12 | PROVIDERS: ATTEND Advanced Practice Midwife | DX: R10.31 Right lower quadrant pain (principal); N83.291 Other ovarian cyst, right side ==

== ENCOUNTER → 2024-10-27 | Outpatient (REF) | payer OTHER, MEDICAID | LOC: M PLALAB 14:37 | PROVIDERS: ATTEND Obstetrics & Gynecology | DX: N87.0 Mild cervical dysplasia (principal) ==

== ENCOUNTER → 2024-11-01 | Outpatient (REF) | payer OTHER, MEDICAID | LOC: M LAB REF 12:04 | PROVIDERS: ATTEND Student in an Organized Health Care Education/Training Program | DX: J02.9 Acute pharyngitis, unspecified (principal) ==

== ENCOUNTER → 2025-01-15 | Outpatient (CLI) | payer OTHER, MEDICAID ==
[2025-01-15 10:09] LABS: CORTISOL AM 5.1 UG/DL (4.3-22.4)
[2025-01-15 10:13] LABS: ESTRADIOL 546.1 PG/ML; LUTEINIZING HORMONE 7.4 mIU/ML
== END ==
LOC: M LAB 08:45
PROVIDERS: ATTEND Student in an Organized Health Care Education/Training Program
DX: E23.6 Other disorders of pituitary gland (principal)